=== PATIENT | male | born 1955 | race Hispanic/Latino ===

== ENCOUNTER 2020-02-01 07:20 | Day surgery (SDC) | payer MEDICARE, OTHER ==
[2020-02-01] MEDS ORDERED: ASPIRIN EC 325 MG TAB PO ONE ×2 (07:58→09:00)
[2020-02-01] MEDS ORDERED: SODIUM CHLORIDE 0.9% 500 ML 500 ML ONE (07:59)
[2020-02-01 08:27] LABS: Basophils # (Auto) 0.1 K/mm3 (0.0-0.1); Basophils % (Auto) 1.3 % (0.0-1.8); Eosinophils # (Auto) 0.3 K/mm3 (0.0-0.4); Eosinophils % (Auto) 3.2 % (0.0-4.3); Hematocrit 36.8 % (35.5-45.6); Hemoglobin 12.4 gm/dl (11.8-15.2); Lymphocytes # (Auto) 1.1 K/mm3 (1.2-5.4); Lymphocytes % (Auto) 13.8 % (13.4-35.0); Mean Corpuscular HGB Conc 34 % (32-34); Mean Corpuscular Volume 92 fl (84-94); Monocytes # (Auto) 0.8 K/mm3 (0.0-0.8); Monocytes % (Auto) 9.7 % (0.0-7.3); Platelet Count 274 K/mm3 (140-440); Red Cell Distribution Width 13.8 % (13.2-15.2)
[2020-02-01 08:37] LABS: BUN/Creatinine Ratio 28; Blood Urea Nitrogen 33 mg/dL (9-20); Hemolysis Index 3
[2020-02-01 08:38] LABS: INR 0.95 (0.87-1.13)
[2020-02-01] MEDS ORDERED: SODIUM CHLORIDE 0.9% 500 ML 500 ML IV SCH (09:00)
[2020-02-01] MEDS ORDERED: CLOPIDOGREL 75 MG TAB ONE (09:16)
[2020-02-01] MEDS ORDERED: HEPARIN/NS 5000 UNIT/500ML 1,000 ML IR ONE (09:31)
[2020-02-01] MEDS ORDERED: MIDAZOLAM 2 MG/2 ML INJ ONE (09:32)
[2020-02-01] MEDS ORDERED: LIDOCAINE (2%) 20 MG/1 ML VIAL 20 ML MDV INFILTRATI ONE (09:32)
[2020-02-01] MEDS ORDERED: VERAPAMIL 5 MG/2 ML INJ ONE (09:32)
[2020-02-01] MEDS ORDERED: fentaNYL 100 MCG/2 ML INJ ONE (09:32)
[2020-02-01] MEDS ORDERED: HEPARIN 10,000 UNITS/10 ML VIAL ONE (09:32)
[2020-02-01] MEDS ORDERED: NITROGLYCERIN SYRINGE 3 ML ONE (09:33)
--- NOTE | 2020-02-01 10:46 | Cardiac Catherization Report ---
PROCEDURE: Left heart cath. DONE BY: Dr. Tello. CLINICAL INFORMATION: This is a 64-year-old gentleman with hypertension, hyperlipidemia, was admitted to the hospital for chest pain, had negative stress test, but despite having negative stress still having angina with partial improvement with nitrates, not on beta matt secondary to bradycardia. Procedure was done with moderate sedation started at 10:07 finished 10:16 which is 9 minutes of moderate sedation. Procedure was done via the right radial artery, sterile technique, local anesthesia, 6-Swiss radial sheath inserted. Left system, JL3.5 catheter, left main is large and patent, bifurcates into a medium caliber LAD, which has an ostial 95% lesion with CANDACE 2 flow. Mid has 80% and diagonal 1 small to medium caliber and patent. Circumflex is a large caliber vessel, mid 80%, prior to bifurcation, OM1 has ostial 50 and was a medium caliber vessel. OM2 is a medium caliber vessel, patent. RCA engaged with JR4, is a large dominant vessel, proximal 80%, mid 60%, small to medium caliber PDA, PLV patent. LV gram done in NAURUAN and BRADLEY view, shows normal LV function, LVEDP of 22 mmHg, LV is 148, aortic is 148/61. No gradient across the aortic valve on pullback. 5-Swiss catheters all taken over guidewire, 6-Swiss radial sheath was discontinued. Radial band applied. No hematoma, no bleeding. SUMMARY: Multivessel disease with left main patent, LAD ostial 95%, mid 80%, diagonal 1 patent, circumflex mid 80%, OM1 ostial 40-50%, OM2 patent, RCA proximal 80%, mid 60%. The patient ____ for bypass surgery. JOB# [id number] ESTHER/WILLIE
[2020-02-01] MEDS ORDERED: HYDROcodone/ACETAMINOPHEN 5-325 MG TAB PO PRN (11:00)
[2020-02-01] MEDS ORDERED: traMADol 50 MG TAB PO PRN (11:00)
--- NOTE | 2020-02-01 11:05 | Short Stay Summary ---
Short Stay Documentation Date of service: 02/01/20 - History H&P: obtained from office - Allergies and Medications Current Medications: Allergies No Known Allergies Allergy (Unverified 01/11/20 10:34) Home Medications Medication Instructions Recorded Confirmed Last Taken Type Aspirin EC [Halfprin EC] 81 mg PO DAILY 02/01/20 02/01/20 01/31/20 History 81 mg Clopidogrel [Plavix] 75 mg PO QDAY 02/01/20 02/01/20 01/31/20 History 75 mg Empagliflozin [Jardiance] 25 mg PO HS 02/01/20 02/01/20 01/31/20 History 25 mg Gabapentin 300 mg PO HS 02/01/20 02/01/20 01/31/20 History 300 mg ISOSORBIDE MONOnitrate [Imdur ER] 30 mg PO BID 02/01/20 02/01/20 02/01/20 05:45 History Insulin Detemir [Levemir VIAL] 30 units SQ 02/01/20 02/01/20 01/31/20 History 30 units Lisinopril [Zestril] 5 mg PO BID 02/01/20 02/01/20 02/01/20 05:40 History Melatonin 3 mg Tablet 3 mg PO 02/01/20 02/01/20 01/29/20 History 3 mg Primidone [Mysoline] 50 mg PO 02/01/20 02/01/20 01/31/20 History 50 mg Tadalafil [Cialis] 5 mg PO PRN PRN 02/01/20 02/01/20 11/06/19 History 5 mg Tamsulosin [Flomax] 0.4 mg PO 02/01/20 02/01/20 01/29/20 History 0.4mg glipiZIDE [Glucotrol] 10 mg PO DAILY 02/01/20 02/01/20 01/29/20 History 10 mg metFORMIN [Glucophage] 2 tab PO BID 02/01/20 02/01/20 01/29/20 History 1000 mg Active Medications Sodium Chloride (Nacl 0.9% 500 Ml) 500 mls @ 50 mls/hr IV DIRECT VERÓNICA Stop: 02/01/20 18:59 Last Admin: 02/01/20 08:19 Dose: 50 mls/hr Documented by: - Brief post op/procedure progress note Date of procedure: 02/01/20 Pre-op diagnosis: angina Post-op diagnosis: same Procedure: see report Anesthesia: local Estimated blood loss: none Pathology: none - Disposition Condition at discharge: Good Disposition: DC-01 TO HOME OR SELFCARE - Discharge Diagnoses (1) CAD (coronary artery disease) Status: Acute Qualifiers: Coronary Disease-Associated Artery/Lesion type: [place] artery Associated angina: with stable angina (2) Chest pain due to CAD Status: Chronic (3) Hypertension Status: Chronic Qualifiers: Hypertension type: essential hypertension Qualified Code(s): I10 - Essential (primary) hypertension (4) Hyperlipemia, mixed Status: Chronic (5) Diabetes mellitus Status: Chronic Qualifiers: Diabetes mellitus type: type 2 Diabetes mellitus ferry terminal supervisor insulin use: with ferry terminal supervisor use Diabetes mellitus complication status: with circulatory complication Diabetes mellitus complication detail: with other circulatory complications Qualified Code(s): E11.59 - Type 2 diabetes mellitus with other circulatory complications; Z79.4 - [facility] (current) use of insulin Short Stay Discharge Plan Activity: advance as tolerated Diet: low fat, low cholesterol, low salt, diabetic Special Instructions: hold Metformin (hold for two days) Follow up with: [facility] [Primary Care Provider] - 7 Days
[2020-02-01 13:08] VITALS: BP 130/61
== END 2020-02-01 14:00 | disposition home or self-care (01) ==
LOC: CATHLABREC 07:20
PROVIDERS: ATTEND Internal Medicine
DX: I25.118 Atherosclerotic heart disease of native coronary artery with other forms of angina pectoris (principal); I10 Essential (primary) hypertension; E78.2 Mixed hyperlipidemia; E11.9 Type 2 diabetes mellitus without complications; M19.90 Unspecified osteoarthritis, unspecified site; Z85.038 Personal history of other malignant neoplasm of large intestine; Z79.4 Long term (current) use of insulin; Z79.82 Long term (current) use of aspirin; Z79.84 Long term (current) use of oral hypoglycemic drugs; Z79.899 Other long term (current) drug therapy; Z98.890 Other specified postprocedural states; Z82.49 Family history of ischemic heart disease and other diseases of the circulatory system
CPT/HCPCS: 36415; 80048; 85025; 85610; 93005; 93458; C1894; J1644; J2250; J3010; J7040; Q9967

== ENCOUNTER 2020-11-19 06:15 | Day surgery (SDC) | payer MEDICARE, OTHER ==
[2020-11-19 07:35] LABS: Basophils # (Auto) 0.2 K/mm3 (0.0-0.1); Basophils % (Auto) 1.8 % (0.0-1.8); Eosinophils # (Auto) 0.3 K/mm3 (0.0-0.4); Eosinophils % (Auto) 3.3 % (0.0-4.3); Hematocrit 35.4 % (35.5-45.6); Hemoglobin 11.8 gm/dl (11.8-15.2); Lymphocytes # (Auto) 1.2 K/mm3 (1.2-5.4); Lymphocytes % (Auto) 11.2 % (13.4-35.0); Mean Corpuscular HGB Conc 33 % (32-34); Mean Corpuscular Volume 94 fl (84-94); Monocytes # (Auto) 0.9 K/mm3 (0.0-0.8); Monocytes % (Auto) 8.7 % (0.0-7.3); Platelet Count 302 K/mm3 (140-440); Red Blood Count 3.77 M/mm3 (3.65-5.03); Red Cell Distribution Width 13.8 % (13.2-15.2)
[2020-11-19 07:43] LABS: INR 0.99 (0.87-1.13); Partial Thromboplastin Time 24.3 Sec. (24.2-36.6)
[2020-11-19 07:44] LABS: BUN/Creatinine Ratio 16; Blood Urea Nitrogen 19 mg/dL (9-20); Calcium 8.9 mg/dL (8.4-10.2); Hemolysis Index 8
[2020-11-19] MEDS ORDERED: SODIUM CHLORIDE 0.9% 500 ML 500 ML IV SCH (08:00)
[2020-11-19] MEDS ORDERED: INSULIN REGULAR, HUMAN 100 UNITS/1 ML SUB-Q SCH (08:00)
[2020-11-19] MEDS ORDERED: INSULIN REGULAR, HUMAN 100 UNITS/1 ML ONE (08:02)
[2020-11-19] MEDS ORDERED: fentaNYL 100 MCG/2 ML INJ ONE (08:02)
[2020-11-19] MEDS ORDERED: HEPARIN 10,000 UNITS/10 ML VIAL ONE (08:02)
[2020-11-19] MEDS ORDERED: HEPARIN/NS 5000 UNIT/500ML 1,000 ML IR ONE (08:02)
[2020-11-19] MEDS ORDERED: MIDAZOLAM 2 MG/2 ML INJ ONE (08:02)
[2020-11-19] MEDS ORDERED: LIDOCAINE (2%) 20 MG/1 ML VIAL 20 ML MDV INFILTRATI ONE (08:03)
[2020-11-19] MEDS: METOPROLOL TARTRATE 5 MG/5 ML INJ IV ONE ×2 (08:52→08:58)
--- NOTE | 2020-11-19 09:25 | Short Stay Summary ---
Short Stay Documentation Date of service: 11/19/20 - History H&P: obtained from office - Allergies and Medications Current Medications: Allergies No Known Allergies Allergy (Unverified 01/11/20 10:34) Home Medications Medication Instructions Recorded Confirmed Last Taken Type Aspirin EC [Halfprin EC] 81 mg PO DAILY 02/01/20 11/19/20 11/19/20 07:33 History Gabapentin 2 tab PO HS 02/01/20 11/19/20 11/18/20 History 300 mg ISOSORBIDE MONOnitrate [Imdur ER] 30 mg PO BID 02/01/20 11/19/20 11/18/20 History 30 mg Insulin Detemir [Levemir VIAL] 30 units SQ HS 02/01/20 11/19/20 11/18/20 History 15 units Lisinopril [Zestril] 5 mg PO BID 02/01/20 11/19/20 11/18/20 History 5 mg Melatonin 3 mg Tablet 3 mg PO HS 02/01/20 11/19/20 11/18/20 History 2 mg Primidone [Mysoline] 50 mg PO HS 02/01/20 11/19/20 11/18/20 History 1 tab Tamsulosin [Flomax] 0.4 mg PO 02/01/20 11/19/20 11/18/20 History 0.4mg glipiZIDE [Glucotrol] 10 mg PO DAILY 02/01/20 11/19/20 11/16/20 History 10 mg metFORMIN [Glucophage] 2 tab PO DAILY 02/01/20 11/19/20 11/16/20 History 2 tab Alogliptin Benzoate [Alogliptin] 25 mg PO HS 11/19/20 11/19/20 11/18/20 History 25 mg AtorvaSTATin [Lipitor] 20 mg PO HS 11/19/20 11/19/20 11/18/20 History 20 mg Ferrous Sulfate [Iron 325 MG] 325 mg PO DAILY 11/19/20 11/19/20 11/18/20 History 1 tab carvediloL [Coreg] 6.25 mg PO DAILY 11/19/20 11/19/20 11/16/20 History 6.25mg Active Medications Hydrocodone Bitart/Acetaminophen (Hydrocodone/Acetaminophen 5-325 Mg Tab) 1 each PO Q4H PRN PRN Reason: Pain, Moderate (4-6) Sodium Chloride (Nacl 0.9% 500 Ml) 500 mls @ 50 mls/hr IV DIRECT VERÓNICA Stop: 11/19/20 17:59 Insulin Human Regular (Insulin Regular, Human 100 Units/1 Ml) 6 units SUB-Q ONCE VERÓNICA Stop: 11/19/20 15:00 Last Admin: 11/19/20 08:18 Dose: 6 units Documented by: Tramadol HCl (Tramadol 50 Mg Tab) 50 mg PO Q4H PRN PRN Reason: Pain, Mild (1-3) - Brief post op/procedure progress note Date of procedure: 11/19/20 Pre-op diagnosis: sob Post-op diagnosis: same Procedure: see report Anesthesia: local Estimated blood loss: minimal Pathology: none - Disposition Condition at discharge: Good Disposition: DC-01 TO HOME OR SELFCARE - Discharge Diagnoses (1) CAD (coronary artery disease) Status: Chronic Qualifiers: Coronary Disease-Associated Artery/Lesion type: bypass graft [place] vs. transplanted heart: [place] heart Associated angina: with stable angina Qualified Code(s): I25.708 - Atherosclerosis of coronary artery bypass graft(s), unspecified, with other forms of angina pectoris (2) Chest pain due to CAD Status: Chronic (3) Diabetes mellitus Status: Chronic Qualifiers: Diabetes mellitus type: type 1 Diabetes mellitus complication status: with circulatory complication Diabetes mellitus complication detail: with other circulatory complications Qualified Code(s): E10.59 - Type 1 diabetes mellitus with other circulatory complications (4) Hyperlipemia, mixed Status: Chronic (5) Hypertension Status: Chronic Qualifiers: Hypertension type: essential hypertension Short Stay Discharge Plan Activity: advance as tolerated Diet: low salt, diabetic Wound: keep clean and dry Follow up with: [facility] [Primary Care Provider] - 7 Days
[2020-11-19] MEDS ORDERED: traMADol 50 MG TAB PO PRN (09:30)
[2020-11-19] MEDS ORDERED: HYDROcodone/ACETAMINOPHEN 5-325 MG TAB PO PRN (10:00)
--- NOTE | 2020-11-19 11:19 | Electrocardiograph Report ---
[facility] Test Date: 2020-11-19 Test Time: 07:44:11 Pat Name: CLIVE GORDON Department: Room: Gender: M Morning Babysitter: LE : 1955 Requested By: BELTRAN TELLO Order Number: [id number] Reading MD: Beltran Tello Measurements Intervals [place] Rate: 89 P: 66 LA: 255 QRS: 89 QRSD: 154 T: 122 QT: 448 QTc: 547 Interpretive Statements Ventricular-paced rhythm No previous ECG available for comparison Electronically Signed On 11-19-2020 11:19:23 EDT by Beltran Tello
--- NOTE | 2020-11-19 12:20 | Cardiac Catherization Report ---
DATE OF SERVICE: 11/19/2020 LEFT HEART CATHETERIZATION CLINICAL INFORMATION: This is a 65-year-old gentleman with history of coronary artery disease, bypass done in 01/2020, GONZALEZ to LAD, SVG to OM, SVG to diagonal, SVG to RCA, and is here for a sudden persistent shortness of breath with exertion similar to prior to bypass, here for left heart cath, fixed defect in his previous stress test, so the patient is here for left heart catheterization. DESCRIPTION OF PROCEDURE: Procedure was done by the right common femoral artery, sterile technique, local anesthesia, 5-Hungarian groin sheath inserted. The patient did have moderate sedation started at 8:43, finished at 9:00, 17 minutes of moderate sedation. Left system was engaged with a JL4 catheter. Left main is large and patent. Then, LAD ostial is 99%, then we see competitive flow. Circumflex medium caliber vessel, mid 80%. OM2 is patent. OM1 ostial 50%, we see competitive flow. RCA proximal 95%, medium caliber vessel, distal we see competitive flow into the PDA. LV gram done in MAORI and BRADLEY view shows normal LV function, LVEDP 29 mmHg, LV is 137, aortic is 137/78. No gradient across the aortic valve on pullback. 5-Hungarian catheter was taken over guidewire, so graft GONZALEZ to LAD engaged with an IM catheter. There is a medium caliber graft, free of disease from the ostium, body, anastomosis feeding to small LAD and less than 2 mm with mild luminal irregularities diffusely. Next, SVG to diagonal is a medium caliber graft engaged with JR4 catheter, free of disease from the ostium, body, anastomosis feeding to small diagonal, less than 2 mm, patent with mild luminal irregularities. Next, SVG to OM engaged with JR4 catheter. Large caliber graft, free of disease from the ostium, body, anastomosis, feeding to medium caliber OM1 with good retrograde and antegrade flow. Next, SVG to PDA engaged with a JR4 catheter, medium caliber graft patent from proximal to mid distal anastomosis site. Antegrade and retrograde filling into the RCA. Catheter was all taken over guidewire, 5-Hungarian groin sheath was discontinued, manual pressure held. No hematoma, no bleeding. SUMMARY: Left main patent, LAD ostial 99%, mid competitive flow. Circumflex mid 80% with competitive flow in OM1. RCA proximal 95% with distal competitive flow. Patent GONZALEZ to LAD, but small vessel LAD, patent SVG to diagonal with small vessel diagonal, patent SVG to OM medium caliber OM1, patent SVG to PDA with good retrograde and antegrade flow. Normal left ventricular function. PLAN: Continue risk factor modification. Discussed this with the patient and the patient's partner in detail. TID: [id number] RECEIPT: [id number] ESTHER/SABRINA/THO
[2020-11-19 13:40] VITALS: BP 127/85
== END 2020-11-19 14:37 | disposition home or self-care (01) ==
LOC: CATHLABREC 06:15
PROVIDERS: ATTEND Internal Medicine
DX: R06.02 Shortness of breath (principal); I25.810 Atherosclerosis of coronary artery bypass graft(s) without angina pectoris; I10 Essential (primary) hypertension; E78.2 Mixed hyperlipidemia; E11.9 Type 2 diabetes mellitus without complications; M19.90 Unspecified osteoarthritis, unspecified site; Z79.82 Long term (current) use of aspirin; Z79.4 Long term (current) use of insulin; Z95.1 Presence of aortocoronary bypass graft; Z85.038 Personal history of other malignant neoplasm of large intestine; Z95.0 Presence of cardiac pacemaker; Z98.890 Other specified postprocedural states; Z79.899 Other long term (current) drug therapy; Z82.49 Family history of ischemic heart disease and other diseases of the circulatory system
CPT/HCPCS: 36415; 80048; 82962; 85025; 85610; 85730; 93005; 93459; 99156; J1644; J2250; J3010; J7040; J1815; Q9967